=== PATIENT | male | born 1950 | race Caucasian/White ===

== ENCOUNTER → 2016-08-08 | Outpatient (CLI) | payer OTHER, MEDICARE | END | disposition home or self-care (01) | LOC: RAD.S 12:37 | DX: S49.92XA Unspecified injury of left shoulder and upper arm, initial encounter (principal); M54.5 Low back pain; G89.29 Other chronic pain; M54.16 Radiculopathy, lumbar region; R53.1 Weakness; M12.9 Arthropathy, unspecified ==